=== PATIENT | female | born 1980 | race Caucasian/White ===

== ENCOUNTER 2017-02-03 13:42 | Emergency (ER) | payer OTHER ==
[2017-02-08] MEDS ORDERED: GLUCOPHAGE500 MG PO (09:19)
[2017-02-08] MEDS ORDERED: VELIVET PO (09:22)
[2017-02-08] MEDS ORDERED: DAILY VITE1 EACH PO (09:23)
[2017-02-08] MEDS ORDERED: WELLBUTRIN XL300 MG PO (09:23)
[2017-02-08] MEDS ORDERED: COCONUT OIL1000 MG PO (09:23)
[2017-02-08] MEDS ORDERED: ZANTAC300 MG PO (09:24)
[2017-02-08] MEDS ORDERED: PAXIL20 MG PO (09:24)
[2017-02-08] MEDS ORDERED: CIPRO500 MG PO (09:31)
[2017-02-08] MEDS ORDERED: FLAGYL500 MG PO (09:32)
[2017-02-08] MEDS ORDERED: DIFLUCAN150 MG PO (09:33)
== END 2017-02-03 16:53 | disposition critical access hospital (66) ==
LOC: ER 13:42
DX: K57.92 Diverticulitis of intestine, part unspecified, without perforation or abscess without bleeding (principal); F41.9 Anxiety disorder, unspecified; E11.9 Type 2 diabetes mellitus without complications; Z98.51 Tubal ligation status; Z79.84 Long term (current) use of oral hypoglycemic drugs; Z79.899 Other long term (current) drug therapy; Z88.0 Allergy status to penicillin; Z88.1 Allergy status to other antibiotic agents; Z88.5 Allergy status to narcotic agent; Z88.8 Allergy status to other drugs, medicaments and biological substances
CPT/HCPCS: 36415; 96365; 96366; 96367; 96375; 96376; Q9967

== ENCOUNTER 2017-02-03 13:42 | Inpatient (IN) | payer OTHER ==
[~2017-02-03] VITALS: Ht 165.1 cm; Wt 77.1 kg
[2017-02-08] MEDS ORDERED: GLUCOPHAGE500 MG PO (09:19)
[2017-02-08] MEDS ORDERED: VELIVET PO (09:22)
[2017-02-08] MEDS ORDERED: COCONUT OIL1000 MG PO (09:23)
[2017-02-08] MEDS ORDERED: DAILY VITE1 EACH PO (09:23)
[2017-02-08] MEDS ORDERED: WELLBUTRIN XL300 MG PO (09:23)
[2017-02-08] MEDS ORDERED: PAXIL20 MG PO (09:24)
[2017-02-08] MEDS ORDERED: ZANTAC300 MG PO (09:24)
[2017-02-08] MEDS ORDERED: CIPRO500 MG PO (09:31)
[2017-02-08] MEDS ORDERED: FLAGYL500 MG PO (09:32)
[2017-02-08] MEDS ORDERED: DIFLUCAN150 MG PO (09:33)
== END 2017-02-06 12:12 | disposition home or self-care (01) | DRG 392 ==
LOC: ER 13:42 → MED 16:54
PROVIDERS: ADMIT Internal Medicine
DX: K57.32 Diverticulitis of large intestine without perforation or abscess without bleeding (principal); N17.9 Acute kidney failure, unspecified; R11.2 Nausea with vomiting, unspecified; E86.0 Dehydration; E11.9 Type 2 diabetes mellitus without complications; K21.9 Gastro-esophageal reflux disease without esophagitis; Z79.84 Long term (current) use of oral hypoglycemic drugs; Z79.899 Other long term (current) drug therapy; Z88.5 Allergy status to narcotic agent; Z88.1 Allergy status to other antibiotic agents; Z88.0 Allergy status to penicillin; Z88.8 Allergy status to other drugs, medicaments and biological substances; N20.0 Calculus of kidney
CPT/HCPCS: 36415; Q9967